=== PATIENT | male | born 1960 | race Caucasian/White ===

== ENCOUNTER 2017-05-20 10:08 | Day surgery (SDC) | payer OTHER ==
[~2017-05-20] VITALS: Ht 175.3 cm; Wt 89.4 kg
[2017-05-20] MEDS ORDERED: VIT B12 (10:41)
[2017-05-20] MEDS ORDERED: GLUCOSAMINE (10:41)
[2017-05-20] MEDS ORDERED: VYTORIN (10:41)
[2017-05-20] MEDS ORDERED: ASPIRIN (10:41)
[2017-05-20] MEDS ORDERED: METOPROLOL (10:41)
[2017-05-20] MEDS ORDERED: METFORMIN (10:41)
[2017-05-20 10:43] VITALS: Ht 175.3 cm; Wt 89.4 kg
[2017-05-20 11:11] VITALS: BP 120/74; PULSE 54; RESP 13
[2017-05-20] MEDS ORDERED: MIDAZOLAM 1 MG/ML 2 ML INJ ONE ×2 (12:23)
[2017-05-20] MEDS ORDERED: FENTAnyl 50 MCG/ML VIAL ONE (12:23)
[2017-05-20 12:35] VITALS: BP 121/81; PULSE 54; RESP 12
--- NOTE | 2017-06-18 05:39 | GILP ---
DATE OF PROCEDURE: PROCEDURE PERFORMED: Screening colonoscopy. SURGEON: Edward Lott MD. POSTOPERATIVE DIAGNOSES: 1. Colonoscopy all the way to the cecum. 2. Right colon polyp was removed using the snare and electrocautery. 3. clipping of the polypectomy site was done to prevent bleeding. INDICATION FOR PROCEDURE: Mr. Zack Zendejas is a 56-year-old male patient who was scheduled for a screening colonoscopy. The procedure and possible complications were well explained to the patient. The patient understood and consented to the procedure. DESCRIPTION OF PROCEDURE: The colonoscope was carefully introduced in the rectum and under direct vision it was advanced all the way to the cecum. Findings, the patient had a polyp in the right colon and it was removed using the snare and electrocautery. clipping of the polypectomy site was done to prevent bleeding. The patient tolerated the procedure very well and there was no complications from the procedure. At the end of the procedure he was awake with stable vital signs and he was discharged home in care of his family. IMPRESSION: 1. Colonoscopy all the way to the cecum. 2. Right colon polyp was removed using the snare and electrocautery. 3. clipping of the polypectomy site was done to prevent bleeding. PLAN: 1. Await histopathology report. 2. Next screening colonoscopy in 5 years. Dictated By: MD ROSY Hawkins/wan/jw /Document#: [id number] CC: Edward Lott MD;*EndCC* MTDD
== END 2017-05-20 17:28 | disposition home or self-care (01) ==
LOC: GIL 10:08
PROVIDERS: ATTEND Internal Medicine Gastroenterology
DX: Z12.11 Encounter for screening for malignant neoplasm of colon (principal); K63.5 Polyp of colon; E11.9 Type 2 diabetes mellitus without complications; I10 Essential (primary) hypertension; I25.10 Atherosclerotic heart disease of native coronary artery without angina pectoris
CPT/HCPCS: 45385; 88305; J2250; J3010; Z7610